=== PATIENT | female | born 1950 | race African-American/Black ===

== ENCOUNTER → 2018-11-19 | Outpatient (CLI) | payer MEDICARE ==
[2014-11-16 12:24] VITALS: BP 164/75
[~2018-11-19] MED LIST: AMLO10TA8; ASPI-612; ATOR40TA59; ENAL20TA; FLUT16SP; LORA10TA3; OMEP40CA5; SERT100T8; SUCR1TAB; TRIA1CAP3; ZOLP10TA4
--- NOTE | 2018-11-19 14:22 | RAD ---
EXAM: Pelvis and bilateral hips, 5 views. HISTORY: Pain. COMPARISON: None. FINDINGS: Frontal and frog-leg views of both hips are obtained. There is no fracture, dislocation or subluxation. There is mild bilateral breast upper and femoral head marginal spurring. There is facet arthropathy at the visualized lower lumbar levels. IMPRESSION: Mild bilateral hip osteoarthritis. Electronically signed by: Laura Kaur MD (11/19/2018 2:19 PM) [id number]
--- NOTE | 2018-11-19 14:22 | RAD ---
EXAM: Lumbar spine, 3 views. HISTORY: Pain. COMPARISON: None. FINDINGS: 3 views of the lumbar spine are obtained. There is grade 1 anterolisthesis of L4 and L5. There is degenerative endplate remodeling at all levels. There is vacuum phenomenon at multiple levels. There is facet arthropathy predominantly at the lower lumbar levels. There are incidental cholecystectomy clips. IMPRESSION: 1. Multilevel degenerative change, primarily at the lower lumbar levels. 2. Grade 1 anterolisthesis of L4 and L5. Electronically signed by: Laura Kaur MD (11/19/2018 2:19 PM) [id number]
== END | disposition home or self-care (01) ==
LOC: RAD 10:14
PROVIDERS: ATTEND Physician Assistant Surgical
DX: M43.16 Spondylolisthesis, lumbar region (principal); M16.0 Bilateral primary osteoarthritis of hip; M47.816 Spondylosis without myelopathy or radiculopathy, lumbar region; Z90.49 Acquired absence of other specified parts of digestive tract
CPT/HCPCS: 72100; 73521